=== PATIENT | female | born 1995 | race Caucasian/White ===

== ENCOUNTER 2016-12-23 14:08 | Emergency (ER) | payer OTHER | END 2016-12-23 15:15 | disposition home or self-care (01) | LOC: ER 14:08 | DX: M54.5 Low back pain (principal); M41.9 Scoliosis, unspecified; Z90.49 Acquired absence of other specified parts of digestive tract; F17.210 Nicotine dependence, cigarettes, uncomplicated; Z79.1 Long term (current) use of non-steroidal anti-inflammatories (NSAID); Z79.899 Other long term (current) drug therapy | CPT/HCPCS: 72100; 99283 ==